=== PATIENT | female | born 1975 | race Hispanic/Latino ===

== ENCOUNTER 2018-10-28 10:05 | Emergency (ER) | payer BC ==
[2018-10-28 10:09] VITALS: BMI 21.2
--- NOTE | 2018-10-28 10:27 | ED PDOC ---
Lower Extremity Pain/Injury Time Seen by Provider: 10/28/18 10:12 Chief Complaint (Nursing): Lower Extremity Problem/Injury Chief Complaint (Provider): right knee pain Additional Complaint(s): pt. c/o right knee pain s/p fall at 7:30 pm last night. (+)ambulatory at scene. Denies any numbness or weakness. (+)UTD on td. Denies fevers/chills/back pain/other ext pain. - Knee Description Of Injury: Fell Currently Unable To: Bear Weight Alleviating Factor(s): Elevation, OTC Pain Medication - Risk Factors DVT Risk Factors: Pos: None Past Medical History Reviewed: Nursing Documentation, Vital Signs Vital Signs: Last Vital Signs Temp 98.5 F 10/28/18 10:09 Pulse 75 10/28/18 10:09 Resp 17 10/28/18 10:09 BP 97/64 L 10/28/18 10:09 Pulse Ox 97 10/28/18 10:09 - Medical History PMH: No Chronic Diseases Denies: Chronic Kidney Disease - Surgical History Surgical History: No Surg Hx - Family History Family History: States: No Known Family Hx - Living Arrangements Living Arrangements: With Family - Home Medications Home Medications: Ambulatory Orders Medication Instructions Recorded Cephalexin [cephalexin] 500 mg PO QID 7 Days cap 10/28/18 Ibuprofen [Motrin] 600 mg PO Q6 #20 tab 10/28/18 - Allergies Allergies/Adverse Reactions: Allergies Allergy/AdvReac Type Severity Reaction Status Date / Time No Known Allergies Allergy Verified 10/28/18 10:13 Review of Systems ROS Statement: Except As Marked, All Systems Reviewed And Found Negative Musculoskeletal: Positive for: Leg Pain Physical Exam - Reviewed Nursing Documentation Reviewed: Yes Vital Signs Reviewed: Yes - Physical Exam Appears: Positive for: Well, Non-toxic, No Acute Distress Head Exam: Positive for: ATRAUMATIC, NORMAL INSPECTION, NORMOCEPHALIC Skin: Positive for: Normal Color, Warm, DRY Eye Exam: Positive for: EOMI, Normal appearance, PERRL ENT: Positive for: Normal ENT Inspection Neck: Positive for: Normal, Painless ROM Cardiovascular/Chest: Positive for: Regular Rate, Rhythm Respiratory: Positive for: CNT, Normal Breath Sounds Gastrointestinal/Abdominal: Positive for: Normal Exam Back: Positive for: Normal Inspection Extremity: Positive for: Normal ROM, Swelling, Other ((+)2 pulses DP and PT B/L. Right knee: (+)swelling, (+)decreased ROM, no open fx, no deformity, (+)2 cm wound to anterior aspect of right patella, no tendon lac. Left knee: (+)tenderness, FROM, no deformity. pt. refused left knee xray.) Neurological/Psych: Positive for: Awake, Alert, Normal Tone, Other (no m/f/s defecits. (+)2 reflexes knee, ankle and plantar.) - ECG O2 Sat by Pulse Oximetry: 97 - Radiology X-Ray Interpretation: Other (right knee xray: no fx or dislocation as read by me) Disposition - Clinical Impression Clinical Impression: Knee contusion, Knee laceration - Patient ED Disposition Is Patient to be Admitted: No (f/u with ortho in two days. Dressing, travis wrap and knee immbolizer applied by me.) - Disposition Disposition: Routine/Home Disposition Time: 11:22 Condition: STABLE Prescriptions: Cephalexin [cephalexin] 500 mg PO QID 7 Days cap Ibuprofen [Motrin] 600 mg PO Q6 #20 tab Instructions: Wound Care (DC), Contusion (DC) Forms: [employer] ([place])
--- NOTE | 2018-10-28 10:58 | RAD ---
Date of service: 10/28/2018 PROCEDURE: Right Knee Radiographs. HISTORY: trauma COMPARISON: None. FINDINGS: BONES: Normal. No fracture. JOINTS: Normal. No osteoarthritis. JOINT EFFUSION: None. OTHER FINDINGS: Questionable small prepatellar soft tissue laceration IMPRESSION: No evidence of acute displaced fracture nor dislocation. Questionable small prepatellar soft tissue laceration
[2018-10-28 11:36] VITALS: BP 105/56; PULSE 60; RESP 18; TEMP 98.2; O2SAT 98
== END 2018-10-28 11:40 | disposition home or self-care (01) ==
LOC: H.ER 10:05
DX: S80.01XA Contusion of right knee, initial encounter (principal); S81.011A Laceration without foreign body, right knee, initial encounter; W19.XXXA Unspecified fall, initial encounter; Y92.89 Other specified places as the place of occurrence of the external cause